=== PATIENT | female | born 2000 | race Caucasian/White ===

== ENCOUNTER 2025-05-21 15:40 | Emergency (ER) | payer SELFPAY ==
[~2025-05-21] VITALS: Ht 154.9 cm; Wt 68.0 kg
[2025-05-21 15:55] VITALS: TEMP 98.3
[2025-05-21] MEDS ORDERED: ONDANSETRON HCL/PF 4 MG/2 ML VIAL ONE (16:14)
[2025-05-21] MEDS ORDERED: MAG HYDROX/AL HYDROX/SIMETH 30 ML UDC ONE (16:14)
[2025-05-21] MEDS ORDERED: FAMOTIDINE/PF INJ 20 MG/2 ML VIAL IV ONE (16:14)
[2025-05-21] MEDS ORDERED: LIDOCAINE VISCOUS 2% UD 15 ML UDC ONE (16:14)
[2025-05-21 16:26] LABS: APPEARANCE,URINE SLIGHTLY CLOUDY (CLEAR); BLOOD, URINE NEGATIVE Ery/uL (NEGATIVE); LEUKOCYTE ESTERASE ,URINE NEGATIVE (NEGATIVE); NITRITE, URINE NEGATIVE (NEGATIVE); UGLUCOSE NEGATIVE (NEGATIVE)
[2025-05-21 16:27] LABS: PREGNANCY TEST URINE QUAL NEGATIVE (NEGATIVE)
[2025-05-21] MEDS: IV NS 0.9% 1,000 ML BAG IV ONE (16:30)
[2025-05-21] MEDS: FAMOTIDINE/PF INJ 20 MG/2 ML VIAL IV ONE (16:31)
[2025-05-21] MEDS: MAG HYDROX/AL HYDROX/SIMETH 30 ML UDC PO ONE (16:34)
[2025-05-21] MEDS: ONDANSETRON HCL/PF 4 MG/2 ML VIAL IVP ONE (16:35)
[2025-05-21] MEDS: LIDOCAINE VISCOUS 2% UD 15 ML UDC MM ONE (16:38)
[2025-05-21 16:41] LABS: PLATELET COUNT (AUTO) 227 K/uL (150-450); RED BLOOD CELL COUNT(AUTO) 4.88 MIL/uL (4.0-5.2); RED CELL DISTRIBUTION WIDTH 15.4 % (11.5-15.0); WHITE BLOOD COUNT (AUTO) 4.6 K/uL (4.3-11.0)
[2025-05-21 16:52] LABS: SQUAMOUS EPITHELIAL CELL,UR Many /HPF (None Seen)
[2025-05-21 16:53] LABS: ADD URINE CULTURE YES
[2025-05-21 17:10] LABS: CALCIUM, SERUM 8.8 mg/dL (8.5-10.1); CREATININE 0.7 mg/dL (0.6-1.3); SODIUM SERUM 139.0 mmol/L (136-145); UREA NITROGEN, BLOOD 12.0 mg/dL (7-18)
[2025-05-21 17:16] LABS: ASPARTATE AMINOTRANSFERASE 19.0 U/L (15-37); TOTAL PROTEIN, SERUM 8.1 g/dL (6.4-8.2)
[2025-05-21] MEDS ORDERED: FAMO20TA8 PO (17:26)
[2025-05-21] MEDS ORDERED: ONDA4TAB5 PO (17:26)
[2025-05-21] MEDS ORDERED: POTASSIUM CHLORIDE 20 MEQ TAB.PRT.SR PO ONE (17:56)
[2025-05-21] MEDS: POTASSIUM CHLORIDE 20 MEQ TAB.PRT.SR PO ONE (18:00)
[2025-05-21 18:10] VITALS: BP 112/74; O2SAT 98
== END 2025-05-21 17:58 | disposition home or self-care (01) ==
LOC: ER 15:50
DX: R11.2 Nausea with vomiting, unspecified (principal); R10.13 Epigastric pain
CPT/HCPCS: 99284; 96374; 96361; 96375; 93005; 85025; 80048; 87086; 83690; 80076; 84703; 81001; 36415; J1308; J2405; J7030